=== PATIENT | male | born 1965 | race Caucasian/White ===

== ENCOUNTER → 2016-06-28 | Outpatient (CLI) | payer BC ==
[2016-06-28 09:40] LABS: ANION GAP 11 MEQ/L (8-16); BLOOD UREA NITROGEN 18 MG/DL (7-18); CALCIUM LEVEL 8.8 MG/DL (8.5-10.1); CARBON DIOXIDE LEVEL 30 MEQ/L (21-32); CHLORIDE LEVEL 101 MEQ/L (98-107); CREATININE FOR GFR 0.93 MG/DL (0.70-1.30); GLOMERULAR FILTRATION RATE > 60.0 (>60); GLUCOSE, FASTING 149 MG/DL (70-105); POTASSIUM SERUM 3.6 MEQ/L (3.5-5.1); SODIUM LEVEL 142 MEQ/L (136-145)
--- NOTE | 2016-06-28 18:37 | ECGEPIP ---
Stationary ECG Study [facility] Test Date: 2016-06-28 Pat Name: FLORES WALKER Department: Room: - Gender: M Clinic Lpn: CESAR : 1965 Requested By: González Short Order Number: [id number] Reading MD: Jayy Dubose Measurements Intervals [place] Rate: 51 P: 62 HI: 165 QRS: 6 QRSD: 124 T: 31 QT: 467 QTc: 431 Interpretive Statements SINUS BRADYCARDIA INFERIOR MYOCARDIAL INFARCTION, PROBABLY OLD WITH POSTERIOR EXTENSION INTERPRETATION BASED ON A DEFAULT AGE OF 40 YEARS NO PRIOR TRACING IN THE SYSTEM Electronically Signed On 06-28-2016 18:37:28 EDT by Jayy Dubose
== END ==
LOC: M LAB 08:32
PROVIDERS: ATTEND Surgery
DX: Z09 Encounter for follow-up examination after completed treatment for conditions other than malignant neoplasm (principal); Z86.79 Personal history of other diseases of the circulatory system

== ENCOUNTER → 2016-08-16 | Outpatient (REF) | payer BC | LOC: M LABDRWAD 12:03 | PROVIDERS: ATTEND Nurse Practitioner Family | DX: E11.9 Type 2 diabetes mellitus without complications (principal) ==

== ENCOUNTER → 2016-11-08 | Outpatient (REF) | payer BC ==
[2016-11-08 13:28] LABS: ALBUMIN 3.9 GM/DL (3.2-5.2); ALBUMIN/GLOBULIN RATIO 1.26 (1.00-1.93); ALKALINE PHOSPHATASE 60 U/L (45-117); ALT/SGPT 61 U/L (12-78); ANION GAP 9 MEQ/L (8-16); AST/SGOT 36 U/L (15-37); BILIRUBIN,TOTAL 0.9 MG/DL (0.2-1.0); BLOOD UREA NITROGEN 16 MG/DL (7-18); CALCIUM LEVEL 9.3 MG/DL (8.5-10.1); CARBON DIOXIDE LEVEL 31 MEQ/L (21-32); CHLORIDE LEVEL 102 MEQ/L (98-107); CHOLESTEROL LEVEL 215 MG/DL (<200); CREATININE FOR GFR 0.93 MG/DL (0.70-1.30); GLOMERULAR FILTRATION RATE > 60.0 (>60); GLUCOSE, FASTING 148 MG/DL (70-105); POTASSIUM SERUM 3.7 MEQ/L (3.5-5.1); SODIUM LEVEL 142 MEQ/L (136-145); TRIGLYCERIDES LEVEL 107 MG/DL (<150)
== END ==
LOC: M LABDRWAD 12:12
PROVIDERS: ATTEND Nurse Practitioner Family
DX: E11.9 Type 2 diabetes mellitus without complications (principal); E78.4 Other hyperlipidemia; I10 Essential (primary) hypertension

== ENCOUNTER → 2017-01-31 | Outpatient (REF) | payer BC | LOC: CANPREREF → M LABDRWAD 12:16 | PROVIDERS: ATTEND Nurse Practitioner Family | DX: E11.9 Type 2 diabetes mellitus without complications (principal); Z53.9 Procedure and treatment not carried out, unspecified reason ==

== ENCOUNTER → 2018-03-04 | Outpatient (CLI) | payer BC ==
[2018-03-04 12:33] LABS: BASO # 0.1 10^3/uL (0.0-0.2); EOS # 0.2 10^3/uL (0.0-0.50); EOS % 3.1 % (0.0-3.0); HEMATOCRIT 45.7 % (42.0-52.0); HEMOGLOBIN 16.1 g/dl (13.5-17.5); IMMATURE GRANULOCYTE % 0.4 % (0-3.0); LYMPH # 1.6 10^3/uL (1.5-4.5); LYMPH % 33.1 % (24.0-44.0); MEAN CORPUSCULAR HGB CONC 35.2 g/dl (32.0-36.5); MEAN CORPUSCULAR VOLUME 90.9 fl (80.0-96.0); MONO # 0.5 10^3/uL (0.0-0.8); MONO % 9.5 % (0.0-5.0); NEUTROPHILS # 2.6 10^3/uL (1.8-7.7); NEUTROPHILS % 52.9 % (36.0-66.0); PLATELET COUNT, AUTOMATED 194 10^3/uL (150-450); RED BLOOD COUNT 5.03 10^6/uL (4.30-6.10); RED CELL DISTRIBUTION WIDTH 11.8 % (11.5-14.5); WHITE BLOOD COUNT 4.9 10^3/uL (4.0-10.0)
[2018-03-04 12:48] LABS: ALBUMIN 3.8 GM/DL (3.2-5.2); ALBUMIN/GLOBULIN RATIO 1.15 (1.00-1.93); ALKALINE PHOSPHATASE 65 U/L (45-117); ALT/SGPT 82 U/L (12-78); ANION GAP 10 MEQ/L (8-16); AST/SGOT 56 U/L (7-37); BILIRUBIN,TOTAL 0.6 MG/DL (0.2-1.0); BLOOD UREA NITROGEN 15 MG/DL (7-18); CALCIUM LEVEL 8.6 MG/DL (8.5-10.1); CARBON DIOXIDE LEVEL 29 MEQ/L (21-32); CHLORIDE LEVEL 102 MEQ/L (98-107); CHOLESTEROL LEVEL 220 MG/DL (<200); CREATININE FOR GFR 0.82 MG/DL (0.70-1.30); GLOMERULAR FILTRATION RATE > 60.0 (>56); GLUCOSE, FASTING 123 MG/DL (70-100); HDL CHOLESTEROL 47 MG/DL (>40); LDL CHOLESTEROL 141 MG/DL (<100); NON-HDL-C 173 MG/DL; POTASSIUM SERUM 3.7 MEQ/L (3.5-5.1); SODIUM LEVEL 141 MEQ/L (136-145); TOTAL PROTEIN 7.1 GM/DL (6.4-8.2); TRIGLYCERIDES LEVEL 158 MG/DL (<150)
[2018-03-04 13:20] LABS: ESTIMATED AVERAGE GLUCOSE 140 MG/DL (60-110); HEMOGLOBIN A1c 6.5 %
[2018-03-07 00:24] LABS: Lyme Disease IgG/IgM Antibodie <0.91 ISR (0.00-0.90); Lyme Disease IgM Ab Quantitati <0.80 index (0.00-0.79)
== END ==
LOC: M ADAMS 08:45
DX: K21.9 Gastro-esophageal reflux disease without esophagitis (principal); W57.XXXA Bitten or stung by nonvenomous insect and other nonvenomous arthropods, initial encounter; E11.9 Type 2 diabetes mellitus without complications; E78.49 Other hyperlipidemia; I10 Essential (primary) hypertension; Z11.59 Encounter for screening for other viral diseases
CPT/HCPCS: 80053

== ENCOUNTER → 2018-04-22 | Outpatient (CLI) | payer BC ==
[2018-04-22 19:09] LABS: BASO # 0.1 10^3/uL (0.0-0.2); BASO % 0.8 % (0.0-1.0); EOS # 0.2 10^3/uL (0.0-0.50); EOS % 2.3 % (0.0-3.0); HEMATOCRIT 45.5 % (42.0-52.0); HEMOGLOBIN 15.8 g/dl (13.5-17.5); LYMPH # 1.7 10^3/uL (1.5-4.5); LYMPH % 26.3 % (24.0-44.0); MEAN CORPUSCULAR HEMOGLOBIN 31.7 pg (27.0-33.0); MEAN CORPUSCULAR HGB CONC 34.7 g/dl (32.0-36.5); MEAN CORPUSCULAR VOLUME 91.2 fl (80.0-96.0); MONO # 0.6 10^3/uL (0.0-0.8); MONO % 9.5 % (0.0-5.0); NEUTROPHILS % 60.9 % (36.0-66.0); PLATELET COUNT, AUTOMATED 201 10^3/uL (150-450); RED BLOOD COUNT 4.99 10^6/uL (4.30-6.10); WHITE BLOOD COUNT 6.6 10^3/uL (4.0-10.0)
[2018-04-22 19:10] LABS: ALBUMIN 4.1 GM/DL (3.2-5.2); ALT/SGPT 89 U/L (12-78); BILIRUBIN,TOTAL 0.9 MG/DL (0.2-1.0); BLOOD UREA NITROGEN 15 MG/DL (7-18); CALCIUM LEVEL 9.2 MG/DL (8.5-10.1); CARBON DIOXIDE LEVEL 30 MEQ/L (21-32); CHLORIDE LEVEL 98 MEQ/L (98-107); CREATININE FOR GFR 0.82 MG/DL (0.70-1.30); GLOMERULAR FILTRATION RATE > 60.0 (>56); GLUCOSE, FASTING 114 MG/DL (70-100); POTASSIUM SERUM 3.8 MEQ/L (3.5-5.1); SODIUM LEVEL 136 MEQ/L (136-145); TOTAL PROTEIN 7.3 GM/DL (6.4-8.2)
[2018-04-22 19:21] LABS: INR 0.96; PROTHROMBIN TIME 12.9 SECONDS (12.1-14.4)
[2018-04-22 19:22] LABS: PARTIAL THROMBOPLASTIN TIME 29.9 SECONDS (25.4-37.6)
== END ==
LOC: M ADAMS 15:56
PROVIDERS: ATTEND Nurse Practitioner Family
DX: I10 Essential (primary) hypertension (principal); K21.9 Gastro-esophageal reflux disease without esophagitis; E11.9 Type 2 diabetes mellitus without complications; Z01.812 Encounter for preprocedural laboratory examination

== ENCOUNTER → 2018-04-29 | Outpatient (CLI) | payer BC | LOC: M LAB 14:16 | PROVIDERS: ATTEND Nurse Practitioner Family | DX: Z01.818 Encounter for other preprocedural examination (principal) ==

== ENCOUNTER 2018-05-20 08:56 | Inpatient (IN) | payer BC ==
[~2018-05-20] VITALS: Ht 190.5 cm; Wt 150.0 kg
[2018-05-20] MEDS ORDERED: HYDR12.55 PO (09:00)
[2018-05-20] MEDS ORDERED: SENOKOT S TAB PO SCH (09:00)
--- NOTE | 2018-05-20 10:08 | REP ---
Right lower extremity duplex venous ultrasound: History: Right lower extremity swelling and erythema. Pain and warmth. Recent surgery. Rule out DVT. Findings: Study is positive for extensive occlusive deep vein thrombosis throughout the right femoral vein extending from proximal at its junction with common femoral vein, through the popliteal vein distally. The femoral vein segment is duplicated. One of the duplicated veins in the femoral segment is open and the other is occluded with the thrombosis. Impression: Study is positive for extensive occlusive right femoral vein and right popliteal vein deep venous thrombosis. The right femoral vein is duplicated and one of the duplicated veins remains open. Electronically Signed by Nico Null MD 05/20/2018 10:00 A
[2018-05-20 12:24] LABS: HEMATOCRIT 41.1 % (42.0-52.0); HEMOGLOBIN 14.1 g/dl (13.5-17.5); MEAN CORPUSCULAR HEMOGLOBIN 31.3 pg (27.0-33.0); MEAN CORPUSCULAR HGB CONC 34.3 g/dl (32.0-36.5); MEAN CORPUSCULAR VOLUME 91.3 fl (80.0-96.0); PLATELET COUNT, AUTOMATED 199 10^3/uL (150-450); WHITE BLOOD COUNT 7.3 10^3/uL (4.0-10.0)
[2018-05-20 12:38] LABS: INR 1.06; PROTHROMBIN TIME 13.9 SECONDS (12.1-14.4)
[2018-05-20 12:39] LABS: PARTIAL THROMBOPLASTIN TIME 30.3 SECONDS (25.4-37.6)
[2018-05-20] MEDS ORDERED: FIBECHW4 PO (12:44)
[2018-05-20] MEDS ORDERED: HYDR50TAB PO (12:44)
[2018-05-20] MEDS ORDERED: OXYC-517 PO (12:44)
[2018-05-20] MEDS ORDERED: GLYB25TA PO (12:44)
[2018-05-20] MEDS ORDERED: MORPHINE 4 MG/ML 1ML VIAL/SYRINGE (J2270) IV PRN (12:45)
[2018-05-20] MEDS ORDERED: BISACODYL 5 MG TAB PO PRN (12:45)
[2018-05-20] MEDS ORDERED: ACETAMINOPHEN TAB 650MG DOSE (2X325MG) PO PRN (12:45)
[2018-05-20] MEDS ORDERED: PERCOCET 5MG/325MG TAB PO PRN (12:45)
[2018-05-20] MEDS ORDERED: ONDANSETRON 4 MG TAB (S0181) PO PRN (12:45)
[2018-05-20 12:53] LABS: BLOOD UREA NITROGEN 10 MG/DL (7-18); CALCIUM LEVEL 8.6 MG/DL (8.5-10.1); CARBON DIOXIDE LEVEL 31 MEQ/L (21-32); CHLORIDE LEVEL 100 MEQ/L (98-107); CREATININE FOR GFR 0.73 MG/DL (0.70-1.30); GLOMERULAR FILTRATION RATE > 60.0 (>56); GLUCOSE, FASTING 131 MG/DL (70-100); POTASSIUM SERUM 4.1 MEQ/L (3.5-5.1); SODIUM LEVEL 138 MEQ/L (136-145)
[2018-05-20] MEDS ORDERED: LIDOCAINE 2% MDV 20 ML VIAL As Ordered ONE (15:21)
[2018-05-20] MEDS ORDERED: ISOVUE-300 61% 50ML VIAL (Q9967) As Ordered ONE (15:22)
[2018-05-20] MEDS ORDERED: MIDAZOLAM INJ 2 MG/2 ML VIAL (J2250) As Ordered ONE (15:58)
[2018-05-20] MEDS ORDERED: fentaNYL 100 MCG/2 ML INJECTION (J3010) As Ordered ONE (15:58)
--- NOTE | 2018-05-20 17:54 | HPEPDOC ---
[facility] Medical History & Physical Date of Admission May 20, 2018 History and Physical CHIEF COMPLAINT: right leg swelling ] HISTORY OF PRESENT ILLNESS: This is a 53 tyo male with pmhx of C5 hematoma with neuro deficit s/p surgery 3 weeks ago who presented to the ed for right leg swelling this morning. Patient denied fever, chills, chest pain, sob. venous doppler in ed found occlusive venous thrombosis in the femoral and popliteal veins. PAST MEDICAL HISTORY: c5 hematoma htn prediabetes PAST SURGICAL HISTORY: c5 hematoma drainage and laminectomy SOCIAL HISTORY: Tobacco use:[n] ETOH: [n] Illicit drug use: [n] IV drug use: [n] FAMILY HISTORY: noncontributory ALLERGIES: Please see below. HOME MEDICATIONS: Please see below. REVIEW OF SYSTEMS: All 14 points ROS is negative except what's stated in HPI PHYSICAL EXAMINATION: GEN: no acute disrtress CVS: Normal S1/s2, no murmurs, rubs or gallops, RESP: Lungs are clear to auscultation bilaterally, no crackles, wheezes or rhonchi Abd: soft, nontender, nondistended, + BS MSK: full ROM except for in right leg due to pain and swelling , 5/5 strength in all extremities , right leg swelling and erythema , warm and tender Integumentary: no rash or bruises Neuro: AOAx3, no focal deficit psych: normal mood, good judgement and cooperative LABORATORY DATA: See below. IMAGING: [ venous doppler - Study is positive for extensive occlusive right femoral vein and right popliteal vein deep venous thrombosis. The right femoral vein is duplicated and one of the duplicated veins remains open. ASSESSMENT:. right leg venous doppler - PLAN: 1. I spoke with patient's neurourgeon , Dr Wolfe who advised against AC at this time given recent surgery, so Dr. Armenta the vascular surgeon said that IVC would be the best option in his case. now s/p IVC filter Patient is stable for dc home per Dr. Armenta. Vital Signs Vital Signs Date Time Temp Pulse Resp B/P (MAP) Pulse Ox O2 Delivery O2 Flow Rate FiO2 05/20/18 09:06 05/20/18 08:57 96.8 103 20 99 Room Air Laboratory Data Labs 24H Laboratory Tests 2 05/20/18 12:10: Nucleated Red Blood Cells % (auto) 0.0 CBC/BMP Laboratory Tests 05/20/18 12:10 Red Blood Count 4.50, Mean Corpuscular Volume 91.3, Mean Corpuscular Hemoglobin 31.3, Mean Corpuscular Hemoglobin Concent 34.3, Red Cell Distribution Width 11.9 Home Medications Scheduled (Fiber Select Gummies) 1 Chw Chw, 1 CHW PO BID Glyburide (Glyburide) 2.5 Mg Tab, 2.5 MG PO DAILY Hydrochlorothiazide (Hydrochlorothiazide) 50 Mg Tab, 50 MG PO DAILY Scheduled PRN Oxycodone HCl (Oxycodone HCl) 5 Mg Tab, 5 MG PO Q4H PRN for PAIN Allergies Coded Allergies: No Known Allergies (Unverified , 05/20/18) EMORY VITALE MD May 20, 2018 12:35
[2018-05-20] MEDS ORDERED: Acetaminophen Tab PO (18:46)
[2018-05-20] MEDS ORDERED: BISAC5TA PO (18:46)
[2018-05-20] MEDS ORDERED: MORPHINE 2 MG/ML 1ML SYRINGE (J2270) As Ordered ONE (19:27)
[2018-05-20 19:41] VITALS: BP 140/105
--- NOTE | 2018-05-20 21:16 | ECGEPIP ---
Stationary ECG Study [facility] - ED Test Date: 2018-05-20 Pat Name: FLORES WALKER Department: Room: - Gender: M Chief Executive Or Managing Director: TC : 1965 Requested By: LINDA Penn PA-C Order Number: [id number] Reading MD: Neville Diallo Measurements Intervals [place] Rate: 77 P: 37 KS: 164 QRS: -19 QRSD: 111 T: 8 QT: 390 QTc: 444 Interpretive Statements SINUS RHYTHM INCOMPLETE RIGHT BUNDLE BRANCH BLOCK VOLTAGE CRITERIA FOR LVH BASELINE ARTIFACT AFFECTS INTERPRETATION Electronically Signed On 05-20-2018 21:16:03 EST by Neville Diallo
--- NOTE | 2018-06-10 11:01 | REPIR ---
DATE OF PROCEDURE: 05/20/2018 ATTENDING SURGEON: Dr. Ramon Armenta ASSISTANTS: Kelly Tran and Haleigh Corey. PREOPERATIVE DIAGNOSIS: Right lower extremity DVT status post recent cervical spine surgery. POSTOPERATIVE DIAGNOSIS: Right lower extremity DVT status post recent cervical spine surgery. PROCEDURE: Ultrasound-guided right basilic vein cannulation, inferior vena cava catheter placement with inferior venacavogram, inferior vena cava filter placement with an option retrievable filter. INDICATION: The patient is a 53-year-old male who recently underwent spinal surgery in [place], [place] and has now presented to the emergency room with pain and swelling in the right lower extremity with findings of right superficial femoral DVT. The patient was unable to undergo anticoagulation and will undergo placement of the inferior vena cava filter for protection from the pulmonary embolus. Risks, benefits and alternative treatment options were discussed with the patient. ANESTHESIA: Local with 10 mL of 2% lidocaine. FLUOROSCOPY TIME: 2.1 minutes. CONTRAST: 8 mL of Isovue-300. HEPARIN: None. COMPLICATIONS: None. DRAINS: None. SPECIMENS: None. IMPLANT: Option retrievable inferior vena cava filter. DESCRIPTION OF PROCEDURE: The patient was taken to the angiography suite, placed supine on the angiography room table and the right upper extremity was prepped and draped in a standard surgical fashion. The right basilic vein was then cannulated using ultrasound guidance. A catheter and wire advanced through the basilic vein into the inferior vena cava. Under fluoroscopic guidance, an inferior venacavogram was performed showing the position of the renal veins. The inferior vena cava filter was then placed below the level of the renal veins using fluoroscopic guidance. The sheath was removed and manual compression was applied in the right basilic vein cannulation site for hemostasis. Dressings were then applied. The patient tolerated the procedure well. All instrument, sponge and needle counts were correct at the end of the case. There were no complications. Dr. Armenta was present for and directed the entire case. The patient was transferred to the holding area and subsequently to the floor in stable condition.
== END 2018-05-20 19:42 | disposition home or self-care (01) | DRG 197 ==
LOC: M ED 08:56 → M ED INP 12:35 → EEVIPCON 12:35
PROVIDERS: ADMIT Internal Medicine; ATTEND Internal Medicine
PROC: 06L03DZ Occlusion of Inferior Vena Cava with Intraluminal Device, Percutaneous Approach (ICD-10-PCS; principal; 2018-05-20)
DX: I82.411 Acute embolism and thrombosis of right femoral vein (principal); I82.431 Acute embolism and thrombosis of right popliteal vein; I10 Essential (primary) hypertension; R73.03 Prediabetes; Z79.84 Long term (current) use of oral hypoglycemic drugs; Z79.899 Other long term (current) drug therapy; Z98.890 Other specified postprocedural states

== ENCOUNTER → 2018-06-14 | Outpatient (CLI) | payer BC ==
[~2018-06-14] MED LIST: Acetaminophen Tab PO; BISAC5TA PO; FIBECHW4 PO; GLYB25TA PO; HYDR12.55 PO; HYDR50TAB PO; OXYC-517 PO
--- NOTE | 2018-06-14 12:31 | REP ---
Clinical: cervical myelopathy . Technique: AP, lateral, flexion/extension, and swimmer's views. Findings: Alignment and lordosis is maintained. There is no evidence for acute fracture / compression injury or subluxation. No significant degenerative changes are appreciated. Impression: Normal cervical spine series. Electronically Signed by Maximo Deal MD 06/14/2018 12:22 P
== END ==
LOC: M RAD 11:48
DX: G95.9 Disease of spinal cord, unspecified (principal)

== ENCOUNTER → 2018-08-23 | Outpatient (CLI) | payer BC ==
--- NOTE | 2018-08-26 08:58 | SLEEPCENT ---
DATE OF PROCEDURE: 08/23/2018 ORDERED BY: Dr. Ortiz Nocturnal polysomnography was performed for re-titration of pressure therapy in this patient with obstructive sleep apnea syndrome. For testing the patient was fit with a [employer] full-full face mask of medium size; 14 cm of water pressure were applied to the circuit and the lights were extinguished. 7 hours and 29 minutes of data were reviewed. There were 393 minutes of sleep identified. Sleep latency was prolonged at 22 minutes. Rapid eye movement (REM) latency was normal at 74 minutes. Sleep architecture was good with 3 REM cycles. Overall sleep efficiency 88.3%. The patient's electrocardiogram showed sinus rhythm with an average heart rate 56 beats per minute. Electroencephalogram (EEG) showed normal waveforms for awake and sleep. Respiratory events were fully palliated CPAP at a pressure of +16, and remaining measures of sleep physiology were normal. IMPRESSION: Obstructive sleep apnea syndrome (G47.33). RECOMMENDATIONS: Nightly use of pressure therapy 16 centimeters of water.
== END ==
LOC: M SLEEP 20:00
PROVIDERS: ATTEND Nurse Practitioner Adult Health
DX: G47.33 Obstructive sleep apnea (adult) (pediatric) (principal)

== ENCOUNTER → 2018-09-04 | Outpatient (CLI) | payer BC ==
--- NOTE | 2018-09-04 09:51 | REP ---
BILATERAL LOWER EXTREMITY DUPLEX DOPPLER VENOUS ULTRASOUND: Real-time compression and duplex Doppler interrogation of the bilateral lower extremity deep venous systems is performed and compared to prior study of 05/20/2018. Once again, there is thrombus seen in the proximal right superficial femoral vein extending down inferiorly to the tibioperoneal trunk, nonocclusive. Prior study showed occlusive thrombus at the same levels. There is also partial thrombosis of the proximal left superficial femoral vein extending inferiorly to the tibioperoneal trunk. IMPRESSION: Partial thrombosis of proximal superficial femoral veins extending distally to the tibioperoneal trunk bilaterally. Electronically Signed by Josue Plascencia MD 09/08/2018 09:54 A
== END ==
LOC: M RAD 08:03
PROVIDERS: ATTEND Surgery Vascular Surgery
DX: I82.403 Acute embolism and thrombosis of unspecified deep veins of lower extremity, bilateral (principal)

== ENCOUNTER → 2018-10-09 | Outpatient (REF) | payer BC ==
[2018-10-09 14:39] LABS: ALBUMIN 4.1 GM/DL (3.2-5.2); ALT/SGPT 48 U/L (12-78); BILIRUBIN,TOTAL 0.4 MG/DL (0.2-1.0); BLOOD UREA NITROGEN 17 MG/DL (7-18); CALCIUM LEVEL 9.4 MG/DL (8.5-10.1); CARBON DIOXIDE LEVEL 28 MEQ/L (21-32); CHLORIDE LEVEL 106 MEQ/L (98-107); CHOLESTEROL LEVEL 220 MG/DL (<200); CREATININE FOR GFR 0.84 MG/DL (0.70-1.30); GLOMERULAR FILTRATION RATE > 60.0 (>56); GLUCOSE, FASTING 120 MG/DL (70-100); HDL CHOLESTEROL 52 MG/DL (>40); LDL CHOLESTEROL 140 MG/DL (<100); NON-HDL-C 168 MG/DL; POTASSIUM SERUM 4.4 MEQ/L (3.5-5.1); SODIUM LEVEL 140 MEQ/L (136-145); TOTAL PROTEIN 7.5 GM/DL (6.4-8.2); TRIGLYCERIDES LEVEL 140 MG/DL (<150)
== END ==
LOC: M LABDRWAD 14:16
PROVIDERS: ATTEND Nurse Practitioner Family
DX: I10 Essential (primary) hypertension (principal); E78.49 Other hyperlipidemia

== ENCOUNTER → 2018-12-24 | Outpatient (REF) | payer BC ==
[2018-12-24 20:02] LABS: INR 2.47; PROTHROMBIN TIME 26.6 SECONDS (11.8-14.0)
== END ==
LOC: M LABDRWAD 18:53
PROVIDERS: ATTEND Family Medicine
DX: Z79.01 Long term (current) use of anticoagulants (principal)

== ENCOUNTER → 2019-01-29 | Outpatient (CLI) | payer BC ==
--- NOTE | 2019-01-29 11:08 | REP ---
BILATERAL LOWER EXTREMITY DUPLEX VENOUS ULTRASOUND: Reflux exam. HISTORY: Chronic embolism and thrombosis. Venous insufficiency. Lower extremity venous sonography from September 04, 2018 showed bilateral deep vein thrombosis fairly extensively in the femoral veins. The patient underwent vena cava filter placement. FINDINGS: There is nonocclusive thrombus visible in the right femoral vein which is partially duplicated and in the right popliteal vein. Partial nonocclusive thrombus is visible in the popliteal vein. There is a duplicated segment of the femoral vein on the left and there is occlusive thrombus in a portion of one of the femoral veins. Findings show considerable improvement from the previous study. REFLUX EXAM FINDINGS: Significant reflux was observed throughout the right lower extremity greater saphenous vein and deep system. The greater saphenous vein measures 8.3 mm in AP dimension proximally at the saphenofemoral junction where there is 2.9-second duration reflux. At mid thigh, the greater saphenous vein measures 6.8 mm and demonstrates 3.8-second duration reflux. At the knee, its dimensions is 5.5 mm and 3.2-second duration reflux is observed. The lesser saphenous vein measures 5.3 mm. Reflux was observed greater than 0.5 seconds in duration throughout the deep system on the right. On the left there is no deep system reflux. There is reflux in the left saphenous vein. The greater saphenous vein measures 7.6 mm in AP dimension proximally at the saphenofemoral junction where there is 3.5-second duration reflux. Its diameter is 6.3 mm at midthigh and 6.2 mm at the knee. No reflux in these segments. The lesser saphenous vein measures 4 mm. IMPRESSION: Improving DVT and bilateral reflux, right greater than left. Electronically Signed by Nico Null MD 01/29/2019 07:38 P
== END ==
LOC: M RAD 08:09
PROVIDERS: ATTEND Surgery Vascular Surgery
DX: I82.503 Chronic embolism and thrombosis of unspecified deep veins of lower extremity, bilateral (principal); I87.2 Venous insufficiency (chronic) (peripheral)

== ENCOUNTER → 2019-03-17 | Outpatient (CLI) | payer BC ==
[2019-03-17 18:06] LABS: BASO % 0.7 % (0.0-1.0); EOS # 0.2 10^3/uL (0.0-0.5); EOS % 2.8 % (0.0-3.0); HEMATOCRIT 46.2 % (42.0-52.0); HEMOGLOBIN 15.4 g/dl (13.5-17.5); LYMPH # 1.2 10^3/uL (1.5-5.0); LYMPH % 21.5 % (24.0-44.0); MEAN CORPUSCULAR HEMOGLOBIN 30.8 pg (27.0-33.0); MEAN CORPUSCULAR HGB CONC 33.3 g/dl (32.0-36.5); MEAN CORPUSCULAR VOLUME 92.4 fl (80.0-96.0); MONO # 0.5 10^3/uL (0.0-0.8); MONO % 8.7 % (0.0-5.0); NEUTROPHILS # 3.6 10^3/uL (1.5-8.5); NEUTROPHILS % 66.1 % (36.0-66.0); PLATELET COUNT, AUTOMATED 200 10^3/uL (150-450); WHITE BLOOD COUNT 5.4 10^3/uL (4.0-10.0)
[2019-03-17 18:18] LABS: INR 1.94; PROTHROMBIN TIME 21.9 SECONDS (11.8-14.0)
[2019-03-17 18:23] LABS: ALBUMIN 4.2 GM/DL (3.2-5.2); ALT/SGPT 59 U/L (12-78); BILIRUBIN,TOTAL 0.6 MG/DL (0.2-1.0); BLOOD UREA NITROGEN 17 MG/DL (7-18); CALCIUM LEVEL 9.3 MG/DL (8.5-10.1); CARBON DIOXIDE LEVEL 29 MEQ/L (21-32); CHLORIDE LEVEL 105 MEQ/L (98-107); CREATININE FOR GFR 0.79 MG/DL (0.70-1.30); GLOMERULAR FILTRATION RATE > 60.0 (>56); GLUCOSE, FASTING 114 MG/DL (70-100); POTASSIUM SERUM 4.1 MEQ/L (3.5-5.1); SODIUM LEVEL 140 MEQ/L (136-145); TOTAL PROTEIN 7.4 GM/DL (6.4-8.2)
[2019-03-17 19:03] LABS: HEMOGLOBIN A1c 6.4 %
--- NOTE | 2019-03-18 08:03 | ECGEPIP ---
[facility] Test Date: 2019-03-17 Pat Name: FLORES WALKER Department: Room: - Gender: Male Keno Writer: JEFE : 1965 Requested By: González Short Order Number: [id number] Reading MD: Mitul Richardson Measurements Intervals [place] Rate: 61 P: 41 ND: 158 QRS: -19 QRSD: 122 T: 11 QT: 410 QTc: 413 Interpretive Statements SINUS RHYTHM MODERATE INTRAVENTRICULAR CONDUCTION DELAY VOLTAGE CRITERIA FOR LVH Inferior Q waves of uncertain significance Baseline artifact Similar to tracing done 05-20-18 Electronically Signed on 03-18-2019 8:02:56 EST by Mitul Richardson
== END ==
LOC: M LAB 16:39
PROVIDERS: ATTEND Surgery
DX: Z01.818 Encounter for other preprocedural examination (principal)

== ENCOUNTER → 2019-05-21 | Outpatient (CLI) | payer BC ==
--- NOTE | 2019-05-21 09:23 | REP ---
Right lower extremity deep vein duplex ultrasound: The deep veins demonstrate normal compression, normal Doppler color flow and normal Doppler waveforms with respiration and augmentation from the popliteal vein to the common femoral vein. Impression: There is no right lower extremity deep vein thrombus. Left lower extremity deep vein duplex ultrasound: There is nonocclusive thrombus in the popliteal vein extending into the distal and mid femoral vein. No thrombus in the proximal femoral vein or common femoral vein. Impression: Nonocclusive thrombus extending from the popliteal vein to the distal and mid femoral Electronically Signed by Josue Chamorro MD 05/21/2019 09:15 A
== END ==
LOC: M RAD 07:37
PROVIDERS: ATTEND Physician Assistant
DX: I82.509 Chronic embolism and thrombosis of unspecified deep veins of unspecified lower extremity (principal); I87.2 Venous insufficiency (chronic) (peripheral)

== ENCOUNTER → 2020-02-08 | Outpatient (CLI) | payer BC ==
--- NOTE | 2020-02-10 22:52 | ECGEPIP ---
[facility] Test Date: 2020-02-08 Pat Name: FLORES WALKER Department: Room: - Gender: Male Behavior Support Specialist: JEFE : 1965 Requested By: Other CDS - complete info on Order Number: [id number] Reading MD: Mitul Rawls Measurements Intervals [place] Rate: 58 P: 39 TN: 146 QRS: -22 QRSD: 118 T: 12 QT: 411 QTc: 406 Interpretive Statements SINUS BRADYCARDIA Leftward axis MODERATE INTRAVENTRICULAR CONDUCTION DELAY VOLTAGE CRITERIA FOR LVH Decreased heart rate compared with 03/17/2019. Electronically Signed on 02-10-2020 22:52:07 EDT by Mitul Rawls
== END ==
LOC: M EKG 16:37
DX: Z01.810 Encounter for preprocedural cardiovascular examination (principal); I82.513 Chronic embolism and thrombosis of femoral vein, bilateral; Z95.828 Presence of other vascular implants and grafts; R00.1 Bradycardia, unspecified

== ENCOUNTER → 2020-02-08 | Outpatient (CLI) | payer BC ==
[2020-02-08 17:45] LABS: HEMATOCRIT 44.7 % (42.0-52.0); HEMOGLOBIN 14.9 g/dl (13.5-17.5); MEAN CORPUSCULAR HEMOGLOBIN 30.1 pg (27.0-33.0); MEAN CORPUSCULAR HGB CONC 33.3 g/dl (32.0-36.5); MEAN CORPUSCULAR VOLUME 90.3 fl (80.0-96.0); PLATELET COUNT, AUTOMATED 191 10^3/uL (150-450); RED BLOOD COUNT 4.95 10^6/uL (4.30-6.10); WHITE BLOOD COUNT 5.6 10^3/uL (4.0-10.0)
[2020-02-08 17:57] LABS: INR 0.99; PROTHROMBIN TIME 13.3 SECONDS (12.5-14.3)
[2020-02-08 18:13] LABS: BLOOD UREA NITROGEN 14 MG/DL (7-18); CALCIUM LEVEL 9.2 MG/DL (8.5-10.1); CARBON DIOXIDE LEVEL 28 MEQ/L (21-32); CHLORIDE LEVEL 102 MEQ/L (98-107); GLOMERULAR FILTRATION RATE > 60.0 (>56); GLUCOSE, FASTING 210 MG/DL (70-100); POTASSIUM SERUM 4.2 MEQ/L (3.5-5.1); SODIUM LEVEL 138 MEQ/L (136-145)
== END ==
LOC: M LAB 16:25
DX: Z01.812 Encounter for preprocedural laboratory examination (principal); I82.513 Chronic embolism and thrombosis of femoral vein, bilateral; Z95.828 Presence of other vascular implants and grafts

== ENCOUNTER → 2020-04-03 | Outpatient (CLI) | payer BC ==
[~2020-04-03] MED LIST changes: +ISOVUE-370 76% 100ML VIAL As Ordered ONE
--- NOTE | 2020-04-03 16:08 | REP ---
INDICATION: PRESENCE OF OTHER VASCULAR IMPLANTS AND GRAFTS. COMPARISON: None. TECHNIQUE: Axial contrast-enhanced images of the abdomen using 100 cc Isovue 370 intravenous contrast material with coronal and sagittal reformations. . This CT examination was performed using the following dose reduction techniques: Automated exposure control, adjustment of mA and/or kv according to the patient's size, and use of iterative reconstruction technique. FINDINGS: Lung bases are clear. Visualized heart and pericardium are grossly normal. Hepatosteatosis noted without focal hepatic lesion. Cholelithiasis is identified without acute cholecystitis. Spleen, pancreas, bilateral adrenal glands and kidneys are relatively normal. An IVC filter is identified originating below the renal veins. Visualized portions of the enteric system are grossly unremarkable including visualized terminal ileum and appendix. No ascites. No free air. No intraperitoneal or retroperitoneal adenopathy appreciated. Abdominal aorta and major branch vessels are normal and without aneurysm or dissection. Musculoskeletal structures intact and without acute osseous abnormality. IMPRESSION: 1. Hepatosteatosis. 2. Cholelithiasis. 3. IVC filter in satisfactory position. <Electronically signed by Maximo Deal > 04/03/20 1804
== END ==
LOC: M RAD 14:42
DX: K76.0 Fatty (change of) liver, not elsewhere classified (principal); K80.20 Calculus of gallbladder without cholecystitis without obstruction; Z95.828 Presence of other vascular implants and grafts
CPT/HCPCS: 74160; Q9967

== ENCOUNTER → 2020-07-28 | Outpatient (REF) | payer BC ==
[~2020-07-28] MED LIST changes: +GLYB2.5T7 PO; -GLYB25TA PO; -ISOVUE-370 76% 100ML VIAL As Ordered ONE
[2020-07-28 12:46] LABS: HEMOGLOBIN 15.7 g/dl (13.5-17.5); MEAN CORPUSCULAR HEMOGLOBIN 30.9 pg (27.0-33.0); MEAN CORPUSCULAR HGB CONC 34.1 g/dl (32.0-36.5); MEAN CORPUSCULAR VOLUME 90.6 fl (80.0-96.0); PLATELET COUNT, AUTOMATED 157 10^3/uL (150-450); RED BLOOD COUNT 5.08 10^6/uL (4.30-6.10); WHITE BLOOD COUNT 4.8 10^3/uL (4.0-10.0)
[2020-07-28 13:43] LABS: ALBUMIN 4.2 GM/DL (3.2-5.2); ALT/SGPT 75 U/L (12-78); BILIRUBIN,TOTAL 1.2 MG/DL (0.2-1.0); BLOOD UREA NITROGEN 15 MG/DL (7-18); CALCIUM LEVEL 10.2 MG/DL (8.5-10.1); CARBON DIOXIDE LEVEL 28 MEQ/L (21-32); CHLORIDE LEVEL 96 MEQ/L (98-107); CHOLESTEROL LEVEL 130 MG/DL (<200); CHOLESTEROL RISK RATIO 3.421 (<5); CREATININE FOR GFR 0.89 MG/DL (0.70-1.30); GLOMERULAR FILTRATION RATE > 60.0 (>56); GLUCOSE, FASTING 351 MG/DL (70-100); HDL CHOLESTEROL 38 MG/DL (>40); LDL CHOLESTEROL 48 MG/DL (<100); NON-HDL-C 92 MG/DL; POTASSIUM SERUM 4.2 MEQ/L (3.5-5.1); SODIUM LEVEL 133 MEQ/L (136-145); TOTAL PROTEIN 7.3 GM/DL (6.4-8.2); TRIGLYCERIDES LEVEL 221 MG/DL (<150)
== END ==
LOC: M LABDRWAD 12:22
PROVIDERS: ATTEND Family Medicine
DX: I10 Essential (primary) hypertension (principal); E11.9 Type 2 diabetes mellitus without complications

== ENCOUNTER → 2020-11-17 | Outpatient (REF) | payer BC ==
[2020-11-17 15:36] LABS: HEMATOCRIT 42.5 % (42.0-52.0); HEMOGLOBIN 14.5 g/dl (13.5-17.5); MEAN CORPUSCULAR HEMOGLOBIN 31.9 pg (27.0-33.0); MEAN CORPUSCULAR HGB CONC 34.1 g/dl (32.0-36.5); MEAN CORPUSCULAR VOLUME 93.4 fl (80.0-96.0); PLATELET COUNT, AUTOMATED 176 10^3/uL (150-450); RED BLOOD COUNT 4.55 10^6/uL (4.30-6.10); WHITE BLOOD COUNT 4.8 10^3/uL (4.0-10.0)
[2020-11-17 15:50] LABS: BLOOD UREA NITROGEN 13 MG/DL (7-18); CALCIUM LEVEL 9.1 MG/DL (8.5-10.1); CARBON DIOXIDE LEVEL 29 MEQ/L (21-32); CHLORIDE LEVEL 102 MEQ/L (98-107); CREATININE FOR GFR 0.81 MG/DL (0.70-1.30); GLOMERULAR FILTRATION RATE > 60.0 (>56); GLUCOSE, FASTING 180 MG/DL (70-100); POTASSIUM SERUM 4.1 MEQ/L (3.5-5.1); SODIUM LEVEL 139 MEQ/L (136-145)
== END ==
LOC: M LABDRWAD 14:42
DX: Z01.818 Encounter for other preprocedural examination (principal)

== ENCOUNTER → 2021-08-03 | Outpatient (CLI) | payer BC ==
[2021-08-03 12:26] LABS: HEMATOCRIT 40.2 % (42.0-52.0); HEMOGLOBIN 13.9 g/dl (13.5-17.5); MEAN CORPUSCULAR HEMOGLOBIN 31.6 pg (27.0-33.0); MEAN CORPUSCULAR HGB CONC 34.6 g/dl (32.0-36.5); MEAN CORPUSCULAR VOLUME 91.4 fl (80.0-96.0); PLATELET COUNT, AUTOMATED 169 10^3/uL (150-450); WHITE BLOOD COUNT 4.9 10^3/uL (4.0-10.0)
[2021-08-03 12:49] LABS: ALBUMIN 3.9 GM/DL (3.2-5.2); ALT/SGPT 33 U/L (12-78); BILIRUBIN,TOTAL 0.8 MG/DL (0.2-1.0); BLOOD UREA NITROGEN 14 MG/DL (7-18); CALCIUM LEVEL 9.1 MG/DL (8.5-10.1); CARBON DIOXIDE LEVEL 31 MEQ/L (21-32); CHLORIDE LEVEL 103 MEQ/L (98-107); CHOLESTEROL LEVEL 125 MG/DL (<200); CHOLESTEROL RISK RATIO 2.717 (<5); CREATININE FOR GFR 0.72 MG/DL (0.70-1.30); GLOMERULAR FILTRATION RATE > 60.0 (>56); GLUCOSE, FASTING 157 MG/DL (70-100); HDL CHOLESTEROL 46 MG/DL (>40); LDL CHOLESTEROL 65 MG/DL (<100); NON-HDL-C 79 MG/DL; POTASSIUM SERUM 4.1 MEQ/L (3.5-5.1); SODIUM LEVEL 140 MEQ/L (136-145); TOTAL PROTEIN 6.6 GM/DL (6.4-8.2); TRIGLYCERIDES LEVEL 72 MG/DL (<150)
[2021-08-03 12:57] LABS: MAU/CREAT RATIO 3.1 MCG/MG (0.0-30.0)
== END ==
LOC: M ADAMS 08:18
PROVIDERS: ATTEND Family Medicine
DX: E11.9 Type 2 diabetes mellitus without complications (principal)

== ENCOUNTER 2021-10-29 22:29 | Emergency (ER) | payer BC ==
[~2021-10-29] VITALS: Ht 190.5 cm; Wt 146.3 kg
[2021-10-29] MEDS ORDERED: TRUL0.5I SC (22:38)
[2021-10-29] MEDS ORDERED: METF500T13 PO (22:38)
[2021-10-29] MEDS ORDERED: ATOR40TA75 PO (22:38)
[2021-10-29] MEDS ORDERED: LISI10TA24 PO (22:38)
[2021-10-29 23:18] LABS: BASO # 0.1 10^3/uL (0.0-0.2); BASO % 0.5 % (0.0-1.0); EOS % 0.2 % (0.0-3.0); HEMOGLOBIN 14.3 g/dl (13.5-17.5); LYMPH # 0.8 10^3/uL (1.5-5.0); LYMPH % 7.1 % (24.0-44.0); MEAN CORPUSCULAR HEMOGLOBIN 31.9 pg (27.0-33.0); MEAN CORPUSCULAR HGB CONC 34.9 g/dl (32.0-36.5); MEAN CORPUSCULAR VOLUME 91.5 fl (80.0-96.0); MONO # 0.6 10^3/uL (0.0-0.8); MONO % 5.4 % (2.0-8.0); NEUTROPHILS # 10.1 10^3/uL (1.5-8.5); NEUTROPHILS % 86.5 % (36.0-66.0); PLATELET COUNT, AUTOMATED 204 10^3/uL (150-450); RED BLOOD COUNT 4.48 10^6/uL (4.30-6.10); WHITE BLOOD COUNT 11.7 10^3/uL (4.0-10.0)
[2021-10-29 23:42] LABS: ALBUMIN 4.1 GM/DL (3.2-5.2); ALT/SGPT 31 U/L (12-78); BILIRUBIN,DIRECT 0.4 MG/DL (0.0-0.2); BILIRUBIN,TOTAL 0.6 MG/DL (0.2-1.0); BLOOD UREA NITROGEN 17 MG/DL (7-18); CALCIUM LEVEL 9.3 MG/DL (8.5-10.1); CARBON DIOXIDE LEVEL 27 MEQ/L (21-32); CHLORIDE LEVEL 102 MEQ/L (98-107); CREATININE FOR GFR 1.11 MG/DL (0.70-1.30); GLOMERULAR FILTRATION RATE > 60.0 (>56); GLUCOSE, FASTING 247 MG/DL (70-100); LIPASE 145 U/L (73-393); POTASSIUM SERUM 4.1 MEQ/L (3.5-5.1); SODIUM LEVEL 136 MEQ/L (136-145)
[2021-10-30] MEDS ORDERED: ONDANSETRON 4MG 2ML VIAL IV ONE (00:45)
[2021-10-30] MEDS ORDERED: KETOROLAC 30 MG/ML 1ML VIAL IV ONE (00:45)
[2021-10-30] MEDS ORDERED: NS 1,000 ML IV ONE (00:45)
[2021-10-30] MEDS ORDERED: KETO10TAB PO (02:13)
[2021-10-30] MEDS ORDERED: FLOM0.4C39 PO (02:13)
[2021-10-30 03:00] VITALS: BP 126/76
[2021-10-30] MEDS ORDERED: traMADol 50 MG TAB PO ONE (03:05)
== END 2021-10-30 03:13 | disposition home or self-care (01) ==
LOC: M ED 22:29
DX: N13.2 Hydronephrosis with renal and ureteral calculous obstruction (principal); K80.20 Calculus of gallbladder without cholecystitis without obstruction; I25.10 Atherosclerotic heart disease of native coronary artery without angina pectoris; E11.9 Type 2 diabetes mellitus without complications; I10 Essential (primary) hypertension; Z86.718 Personal history of other venous thrombosis and embolism; Z79.84 Long term (current) use of oral hypoglycemic drugs; Z79.899 Other long term (current) drug therapy
CPT/HCPCS: 74176; 80048; 80076; 81001; 83690; 85025; 93005; 96361; 96374; 96375; 99284; J1885; J2405

== ENCOUNTER → 2022-02-15 | Outpatient (CLI) | payer BC ==
[~2022-02-15] MED LIST changes: +ATOR40TA75 PO; +FLOM0.4C39 PO; +KETO10TAB PO; +LISI10TA24 PO; +METF500T13 PO; +TRUL0.5I SC
[2022-02-15 13:47] LABS: BASO % 0.7 % (0.0-1.0); EOS # 0.1 10^3/uL (0.0-0.5); EOS % 2.4 % (0.0-3.0); HEMATOCRIT 38.3 % (42.0-52.0); HEMOGLOBIN 12.9 g/dl (13.5-17.5); LYMPH # 1.1 10^3/uL (1.5-5.0); LYMPH % 20.3 % (24.0-44.0); MEAN CORPUSCULAR HEMOGLOBIN 31.4 pg (27.0-33.0); MEAN CORPUSCULAR HGB CONC 33.7 g/dl (32.0-36.5); MEAN CORPUSCULAR VOLUME 93.2 fl (80.0-96.0); MONO # 0.5 10^3/uL (0.0-0.8); MONO % 9.9 % (2.0-8.0); NEUTROPHILS # 3.6 10^3/uL (1.5-8.5); NEUTROPHILS % 66.1 % (36.0-66.0); PLATELET COUNT, AUTOMATED 173 10^3/uL (150-450); RED BLOOD COUNT 4.11 10^6/uL (4.30-6.10); WHITE BLOOD COUNT 5.4 10^3/uL (4.0-10.0)
[2022-02-15 14:28] LABS: ALBUMIN 3.8 GM/DL (3.2-5.2); ALT/SGPT 31 U/L (12-78); BLOOD UREA NITROGEN 14 MG/DL (7-18); CARBON DIOXIDE LEVEL 28 MEQ/L (21-32); CHLORIDE LEVEL 104 MEQ/L (98-107); CHOLESTEROL LEVEL 119 MG/DL (<200); CHOLESTEROL RISK RATIO 2.531 (<5); CREATININE FOR GFR 0.86 MG/DL (0.70-1.30); GLOMERULAR FILTRATION RATE > 60.0 (>56); GLUCOSE, FASTING 155 MG/DL (70-100); HDL CHOLESTEROL 47 MG/DL (>40); LDL CHOLESTEROL 56 MG/DL (<100); NON-HDL-C 72 MG/DL; POTASSIUM SERUM 4.1 MEQ/L (3.5-5.1); SODIUM LEVEL 140 MEQ/L (136-145); TOTAL PROTEIN 6.6 GM/DL (6.4-8.2); TRIGLYCERIDES LEVEL 80 MG/DL (<150)
[2022-02-15 14:59] LABS: MAU/CREAT RATIO 6.3 MCG/MG (0.0-30.0)
[2022-02-15 15:38] LABS: HEMOGLOBIN A1c 7.3 %
== END ==
LOC: M LABDRWAD 07:34
PROVIDERS: ATTEND Family Medicine
DX: E11.9 Type 2 diabetes mellitus without complications (principal)

== ENCOUNTER → 2022-06-28 | Outpatient (REF) | payer BC ==
[2022-06-28 13:47] LABS: BASO % 0.6 % (0.0-1.0); EOS # 0.1 10^3/uL (0.0-0.5); EOS % 2.6 % (0.0-3.0); HEMATOCRIT 42.4 % (42.0-52.0); HEMOGLOBIN 14.3 g/dl (13.5-17.5); LYMPH # 1.1 10^3/uL (1.5-5.0); MEAN CORPUSCULAR HEMOGLOBIN 31.4 pg (27.0-33.0); MEAN CORPUSCULAR HGB CONC 33.7 g/dl (32.0-36.5); MONO # 0.5 10^3/uL (0.0-0.8); MONO % 9.6 % (2.0-8.0); NEUTROPHILS # 3.5 10^3/uL (1.5-8.5); NEUTROPHILS % 65.8 % (36.0-66.0); PLATELET COUNT, AUTOMATED 185 10^3/uL (150-450); RED BLOOD COUNT 4.56 10^6/uL (4.30-6.10); WHITE BLOOD COUNT 5.3 10^3/uL (4.0-10.0)
[2022-06-28 13:54] LABS: FERRITIN 191.6 NG/ML (10.5-307.3)
[2022-06-28 13:58] LABS: PERCENT SATURATION 34.7 % (19.7-50.0)
[2022-06-28 14:02] LABS: FOLATE 8.9 NG/ML (>5.4)
== END ==
LOC: M LABDRWAD 12:52
PROVIDERS: ATTEND Family Medicine
DX: D64.9 Anemia, unspecified (principal)

== ENCOUNTER → 2022-11-26 | Outpatient (CLI) | payer BC | LOC: M EKG 16:05 | PROVIDERS: ATTEND Family Medicine | DX: I49.9 Cardiac arrhythmia, unspecified (principal) ==

== ENCOUNTER → 2023-05-16 | Outpatient (REF) | payer BC ==
[2023-05-16 13:38] LABS: BASO # 0.1 10^3/uL (0.0-0.2); BASO % 0.9 % (0.0-1.0); EOS # 0.1 10^3/uL (0.0-0.5); EOS % 1.8 % (0.0-3.0); HEMATOCRIT 43.4 % (42.0-52.0); HEMOGLOBIN 14.7 g/dl (13.5-17.5); LYMPH # 1.5 10^3/uL (1.5-5.0); LYMPH % 22.3 % (24.0-44.0); MEAN CORPUSCULAR HEMOGLOBIN 31.3 pg (27.0-33.0); MEAN CORPUSCULAR HGB CONC 33.9 g/dl (32.0-36.5); MEAN CORPUSCULAR VOLUME 92.3 fl (80.0-96.0); MONO # 0.6 10^3/uL (0.0-0.8); MONO % 9.2 % (2.0-8.0); NEUTROPHILS # 4.4 10^3/uL (1.5-8.5); NEUTROPHILS % 65.5 % (36.0-66.0); PLATELET COUNT, AUTOMATED 192 10^3/uL (150-450); WHITE BLOOD COUNT 6.6 10^3/uL (4.0-10.0)
[2023-05-16 13:46] LABS: ALBUMIN 4.2 G/DL (3.2-5.2); ALKALINE PHOSPHATASE 73 U/L (46-116); ALT/SGPT 27 U/L (7.0-40); AST/SGOT 17 U/L (<34); BILIRUBIN,TOTAL 0.7 MG/DL (0.3-1.2); BLOOD UREA NITROGEN 18 MG/DL (9-23); CALCIUM LEVEL 9.7 MG/DL (8.5-10.1); CARBON DIOXIDE LEVEL 30 MMOL/L (20-31); CHLORIDE LEVEL 102 MMOL/L (98-107); CHOLESTEROL LEVEL 101 MG/DL (<200); CHOLESTEROL RISK RATIO 2.17 (<5); CREATININE FOR GFR 0.76 MG/DL (0.70-1.30); GLOMERULAR FILTRATION RATE > 60.0 (>56); GLUCOSE, FASTING 139 MG/DL (60-100); HDL CHOLESTEROL 46.5 MG/DL (>40); LDL CHOLESTEROL 39.1 MG/DL (<100); NON-HDL-C 54.5 MG/DL; POTASSIUM SERUM 4.3 MMOL/L (3.5-5.1); SODIUM LEVEL 139 MMOL/L (136-145); TOTAL PROTEIN 7.1 G/DL (5.7-8.2); TRIGLYCERIDES LEVEL 77 MG/DL (<150)
[2023-05-16 13:54] LABS: HEMOGLOBIN A1c 6.9 % (4.0-6.0)
== END ==
LOC: M LABDRWAD 13:04
PROVIDERS: ATTEND Family Medicine
DX: E11.9 Type 2 diabetes mellitus without complications (principal)

== ENCOUNTER → 2023-07-23 | Outpatient (REF) | payer BC ==
[2023-07-23 14:13] LABS: BLOOD UREA NITROGEN 19 MG/DL (9-23); CALCIUM LEVEL 9.1 MG/DL (8.5-10.1); CARBON DIOXIDE LEVEL 29 MMOL/L (20-31); CHLORIDE LEVEL 101 MMOL/L (98-107); CREATININE FOR GFR 0.89 MG/DL (0.70-1.30); GLOMERULAR FILTRATION RATE > 60.0 (>56); GLUCOSE, FASTING 162 MG/DL (60-100); SODIUM LEVEL 137 MMOL/L (136-145)
[2023-07-23 14:29] LABS: BASO # 0.1 10^3/uL (0.0-0.2); BASO % 0.8 % (0.0-1.0); EOS # 0.2 10^3/uL (0.0-0.5); EOS % 2.3 % (0.0-3.0); HEMATOCRIT 44.9 % (42.0-52.0); HEMOGLOBIN 15.3 g/dl (13.5-17.5); LYMPH # 1.4 10^3/uL (1.5-5.0); LYMPH % 21.8 % (24.0-44.0); MEAN CORPUSCULAR HEMOGLOBIN 32.2 pg (27.0-33.0); MEAN CORPUSCULAR HGB CONC 34.1 g/dl (32.0-36.5); MEAN CORPUSCULAR VOLUME 94.5 fl (80.0-96.0); MONO # 0.6 10^3/uL (0.0-0.8); MONO % 9.8 % (2.0-8.0); NEUTROPHILS # 4.2 10^3/uL (1.5-8.5); PLATELET COUNT, AUTOMATED 194 10^3/uL (150-450); RED BLOOD COUNT 4.75 10^6/uL (4.30-6.10); WHITE BLOOD COUNT 6.4 10^3/uL (4.0-10.0)
== END ==
LOC: M LABDRWAD 12:36
PROVIDERS: ATTEND Internal Medicine Cardiovascular Disease
DX: I48.0 Paroxysmal atrial fibrillation (principal)

== ENCOUNTER → 2024-01-21 | Outpatient (REF) | payer BC ==
[2024-01-21 13:46] LABS: BASO # 0.1 10^3/uL (0.0-0.2); EOS # 0.2 10^3/uL (0.0-0.5); EOS % 2.6 % (0.0-3.0); HEMATOCRIT 42.6 % (42.0-52.0); HEMOGLOBIN 14.6 g/dl (13.5-17.5); LYMPH # 1.6 10^3/uL (1.5-5.0); LYMPH % 26.3 % (24.0-44.0); MEAN CORPUSCULAR HEMOGLOBIN 32.3 pg (27.0-33.0); MEAN CORPUSCULAR HGB CONC 34.3 g/dl (32.0-36.5); MEAN CORPUSCULAR VOLUME 94.2 fl (80.0-96.0); MONO # 0.5 10^3/uL (0.0-0.8); MONO % 7.6 % (2.0-8.0); NEUTROPHILS # 3.8 10^3/uL (1.5-8.5); NEUTROPHILS % 62.2 % (36.0-66.0); PLATELET COUNT, AUTOMATED 216 10^3/uL (150-450); RED BLOOD COUNT 4.52 10^6/uL (4.30-6.10); WHITE BLOOD COUNT 6.2 10^3/uL (4.0-10.0)
[2024-01-21 14:17] LABS: BLOOD UREA NITROGEN 13 MG/DL (9-23); CALCIUM LEVEL 9.5 MG/DL (8.5-10.1); CARBON DIOXIDE LEVEL 30 MMOL/L (20-31); CHLORIDE LEVEL 104 MMOL/L (98-107); CREATININE FOR GFR 0.84 MG/DL (0.70-1.30); GLOMERULAR FILTRATION RATE > 60.0 (>56); GLUCOSE, FASTING 136 MG/DL (60-100); POTASSIUM SERUM 4.6 MMOL/L (3.5-5.1); SODIUM LEVEL 140 MMOL/L (136-145)
== END ==
LOC: M LABDRWAD 13:19
PROVIDERS: ATTEND Internal Medicine Cardiovascular Disease
DX: I48.0 Paroxysmal atrial fibrillation (principal); I50.9 Heart failure, unspecified

== ENCOUNTER → 2024-07-14 | Outpatient (CLI) | payer BC ==
[2024-07-14 15:11] LABS: BASO # 0.1 10^3/uL (0.0-0.2); EOS # 0.2 10^3/uL (0.0-0.5); EOS % 2.5 % (0.0-3.0); HEMATOCRIT 41.4 % (42.0-52.0); LYMPH % 17.3 % (24.0-44.0); MEAN CORPUSCULAR HGB CONC 33.8 g/dl (32.0-36.5); MEAN CORPUSCULAR VOLUME 91.6 fl (80.0-96.0); MONO # 0.5 10^3/uL (0.0-0.8); MONO % 8.3 % (2.0-8.0); NEUTROPHILS # 4.2 10^3/uL (1.5-8.5); NEUTROPHILS % 70.4 % (36.0-66.0); PLATELET COUNT, AUTOMATED 224 10^3/uL (150-450); RED BLOOD COUNT 4.52 10^6/uL (4.30-6.10); WHITE BLOOD COUNT 5.9 10^3/uL (4.0-10.0)
[2024-07-14 15:22] LABS: ALBUMIN 3.7 G/DL (3.2-5.2); ALKALINE PHOSPHATASE 89 U/L (40-129); ALT/SGPT 35 U/L (7.0-40); AST/SGOT 28 U/L (<34); BILIRUBIN,TOTAL 0.6 MG/DL (0.3-1.2); BLOOD UREA NITROGEN 17 MG/DL (9-23); CALCIUM LEVEL 9.3 MG/DL (8.5-10.1); CARBON DIOXIDE LEVEL 31 MMOL/L (20-31); CHLORIDE LEVEL 104 MMOL/L (98-107); CHOLESTEROL LEVEL 120 MG/DL (<200); CHOLESTEROL RISK RATIO 3.66 (<5); CREATININE FOR GFR 0.81 MG/DL (0.70-1.30); GLOMERULAR FILTRATION RATE > 60.0 (>56); GLUCOSE, FASTING 153 MG/DL (60-100); HDL CHOLESTEROL 32.7 MG/DL (>40); LDL CHOLESTEROL 63.7 MG/DL (<100); NON-HDL-C 87.3 MG/DL; POTASSIUM SERUM 4.3 MMOL/L (3.5-5.1); SODIUM LEVEL 141 MMOL/L (136-145); TOTAL PROTEIN 6.9 G/DL (5.7-8.2); TRIGLYCERIDES LEVEL 118 MG/DL (<150)
[2024-07-14 15:37] LABS: HEMOGLOBIN A1c 7.1 % (4.0-6.0)
[2024-07-14 15:55] LABS: CREATININE, URINE 275.8 MG/DL; MAU/CREAT RATIO 1.8 MCG/MG (0.0-30.0)
== END ==
LOC: M WUC 07:22
PROVIDERS: ATTEND Family Medicine
DX: E11.9 Type 2 diabetes mellitus without complications (principal)